=== PATIENT | male | born 1995 | race Caucasian/White ===

== ENCOUNTER 2017-09-27 16:49 | Emergency (ER) | payer BC, OTHER ==
[2017-09-27 17:32] VITALS: BP 146/83
--- NOTE | 2017-09-27 17:59 | UC ---
Respiratory Complaint HPI - HPI Summary HPI Summary: Pt c/o bronchospastic cough that began 1 month ago. Pt states that cough has worsened over last few days and that his chest feel tight and burning. - History of Current Complaint Chief Complaint: UCGeneralIllness Stated Complaint: RESPIRATORY Time Seen by Provider: 09/27/17 17:46 Hx Obtained From: Patient Onset/Duration: Gradual Onset, Lasting Weeks, Still Present, Worse Since - onset Timing: Intermittent Episodes Severity Initially: Mild Severity Currently: Moderate Pain Intensity: 0 Character: Cough: Nonproductive Aggravating Factors: Deep Breaths, Recumbent Position Alleviating Factors: Nothing Associated Signs And Symptoms: Positive: Wheezing, URI, Nasal Congestion - Risk Factors Pulmonary Embolism Risk Factors: Negative Cardiac Risk Factors: Negative Pseudomonas Risk Factors: Negative Tuberculosis Risk Factors: Negative - Allergies/Home Medications Allergies/Adverse Reactions: Allergies Allergy/AdvReac Type Severity Reaction Status Date / Time No Known Allergies Allergy Verified 09/27/17 17:32 Home Medications: Home Medications GuaiFENesin DM* [Robitussin DM*] 10 ml PO ONCE 09/27/17 [History Confirmed 09/27] PMH/Surg Hx/FS Hx/Imm Hx Previously Healthy: Yes - Surgical History Surgical History: None - Family History Known Family History: Positive: Cardiac Disease - Social History Occupation: Employed Full-time Lives: With Family Alcohol Use: Daily Alcohol Amount: 2-3 beers daily, more on weekends Substance Use Type: None Smoking Status (MU): Former Smoker Have You Smoked in the Last Year: No Review of Systems Constitutional: Fatigue Skin: Negative Eyes: Negative ENT: Sinus Congestion Respiratory: Cough Cardiovascular: Negative Gastrointestinal: Negative Genitourinary: Negative Motor: Negative Neurovascular: Negative Musculoskeletal: Negative Neurological: Negative Psychological: Negative Is Patient Immunocompromised?: No All Other Systems Reviewed And Are Negative: Yes Physical Exam Triage Information Reviewed: Yes Appearance: Ill-Appearing Vital Signs: Initial Vital Signs Temp 99.2 F 09/27/17 17:26 Pulse 87 09/27/17 17:26 Resp 18 09/27/17 17:26 BP 146/83 09/27/17 17:26 Pulse Ox 99 09/27/17 17:26 Vital Signs Reviewed: Yes Eye Exam: Normal ENT Exam: Other ENT: Positive: Nasal congestion Dental Exam: Normal Neck exam: Normal Respiratory: Positive: Wheezing Cardiovascular Exam: Normal Musculoskeletal Exam: Normal Neurological Exam: Normal Psychological Exam: Normal Skin Exam: Normal UC Diagnostic Evaluation - Laboratory O2 Sat by Pulse Oximetry: 99 Respiratory Course/Dx - Differential Dx/Diagnosis Differential Diagnosis/HQI/PQRI: Bronchitis, Other - reactive airway Provider Diagnoses: bronchitis Discharge - Sign-Out/Discharge Documenting (check all that apply): Discharge/Admit/Transfer - Discharge Plan Condition: Stable Disposition: HOME Prescriptions: Albuterol HFA INHALER* [Ventolin HFA Inhaler*] 1 - 2 puff INH Q6H PRN #1 mdi PRN Reason: Sob/Wheezing Azithromycin TAB* [Zithromax TAB (Z-SHIRAZ) 250 mg #6 tabs] 2 tab PO .TODAY, THEN 1 DAILY #1 shiraz Benzonatate CAP* [Tessalon 100 MG CAP*] 100 mg PO Q8H PRN #21 cap PRN Reason: Cough predniSONE TAB* [Deltasone TAB*] 30 mg PO DAILY #12 tab Patient Education Materials: Acute Bronchitis (ED), Reactive Airways Disease ( ED) Referrals: Jagjit Campoverde MD [Primary Care Provider] - If Needed - Billing Disposition and Condition Condition: STABLE Disposition: HOME
== END 2017-09-27 18:13 | disposition home or self-care (01) ==
LOC: UCCORT 16:49
DX: J40 Bronchitis, not specified as acute or chronic (principal); Z87.891 Personal history of nicotine dependence
CPT/HCPCS: 99202; G0463

== ENCOUNTER 2019-06-26 15:52 | Emergency (ER) | payer BC ==
[2019-06-26 16:24] VITALS: BP 142/85
--- NOTE | 2019-06-26 16:39 | UC ---
Respiratory Complaint HPI - HPI Summary HPI Summary: Patient is a 23yo male presenting with cough 2 weeks. Patient states the cough worsened 3 or 4 days ago. States 3 or 4 days ago he also had fever and body aches. Denies shortness of breath and wheezing. Notes intermittent chest tightness with coughing. States he has an inhaler from his primary care that he has not felt the need to use for current symptoms. Denies nasal congestion and sore throat. Does note fatigue. Denies decreased appetite. Denies nausea and vomiting. Taking [id number] cough and cold medication. Patient states he has seen his PCP every year for the last 2 years for similar symptoms. Former smoker. - History of Current Complaint Chief Complaint: UCGeneralIllness Stated Complaint: COUGH CONGESTION Time Seen by Provider: 06/26/19 16:38 Hx Obtained From: Patient Pain Intensity: 9 Pain Scale Used: 0-10 Numeric - Allergies/Home Medications Allergies/Adverse Reactions: Allergies Allergy/AdvReac Type Severity Reaction Status Date / Time No Known Allergies Allergy Verified 06/26/19 16:17 Home Medications: Home Medications Diphenhydra/Phenyleph/Acetamin [Cold & Flu Relief Multi-Sym Lq] 1 dose PO ONCE 06/26/19 [History Confirmed 06/26/19] PMH/Surg Hx/FS Hx/Imm Hx - Surgical History Surgical History: None - Family History Known Family History: Positive: Cardiac Disease - Social History Alcohol Use: Occasionally Alcohol Amount: 2-3 beers daily, more on weekends Substance Use Type: None Smoking Status (MU): Former Smoker Type: Cigarettes, eCigarettes Have You Smoked in the Last Year: No When Did the Patient Quit Smoking/Using Tobacco: May 2019 Review of Systems All Other Systems Reviewed And Are Negative: Yes Constitutional: Positive: Fever - 3 days ago, Chills - 3 days ago, Fatigue Respiratory: Positive: Cough. Negative: Shortness Of Breath Cardiovascular: Positive: Negative Gastrointestinal: Positive: Negative Musculoskeletal: Positive: Myalgia - 3 days ago Neurological: Positive: Negative Physical Exam - Summary Physical Exam Summary: Vital Signs Reviewed: Yes A+Ox3, no distress Eyes: Conjunctiva Clear ENT: Hearing grossly normal, TM x 2 clear, moist, uvula midline, no exudate, + pharyngeal erythema Neck: Positive: Supple Respiratory: Positive: No respiratory distress, No accessory muscle use + CTA throughout no w/r Cardiovascular: RRR nl s1, s2 no m/r Musculoskeletal Exam: MCCRAY x 4 without difficulty Neurological: Positive: Alert Psychological: Positive: age appropriate behavior Skin: Positive: no rash, no ecchymosis Vital Signs: Initial Vital Signs Temp 98.3 F 06/26/19 16:18 Pulse 95 06/26/19 16:18 Resp 16 06/26/19 16:18 BP 142/85 06/26/19 16:18 Pulse Ox 98 06/26/19 16:18 Lab Results 06/26/19 Range/Units 16:40 Influenza B (Rapid) Positive A (Negative) Respiratory Course/Dx - Course Course Of Treatment: Rapid flu positive. Instructed to continue with symptomatic treatment. Patient requested tessalon perles, stating those have always helped relieve coughing. Provided patient with prescription for tessalon perles and instructed to also use his inhaler as needed for sob. Instructed to follow up with pcp if symptoms persist or worsen.. Patient voiced understanding and agreed with treatment plan. - Differential Dx/Diagnosis Provider Diagnosis: Influenza B Discharge ED - Sign-Out/Discharge Documenting (check all that apply): Patient Departure All imaging exams completed and their final reports reviewed: No Studies - Discharge Plan Condition: Stable Disposition: HOME Prescriptions: Benzonatate CAP* [Tessalon 100 MG CAP*] 100 mg PO TID PRN #21 cap PRN Reason: Cough Patient Education Materials: Influenza (ED) Forms: *Work Release Referrals: Jagjit Campoverde MD [Primary Care Provider] - If Needed Additional Instructions: You tested positive for influenza today. You may continue with over the counter cold and flu medication for symptom relief. Take the tessalon perles as needed. Use your inhaler as needed for shortness of breath/chest tightness. Get plenty of rest and increase your fluid intake. Follow up with your primary care provider if symptoms do not resolve within 5-7 days. - Billing Disposition and Condition Condition: STABLE Disposition: Home - Attestation Statements Provider Attestation: I was available for consult. This patient was seen by the [facility]. The patient was not presented to, seen by, or examined by me. -Hector
[2019-06-26 16:44] LABS: Influenza B Molecular POSITIVE (Negative)
== END 2019-06-26 17:06 | disposition home or self-care (01) ==
LOC: UCCORT 15:52
DX: J10.1 Influenza due to other identified influenza virus with other respiratory manifestations (principal); Z87.891 Personal history of nicotine dependence
CPT/HCPCS: 99212; G0463